=== PATIENT | female | born 1975 | race Caucasian/White ===

== ENCOUNTER 2023-05-10 18:46 | Emergency (ER) | payer OTHER, BC ==
[~2023-05-10] VITALS: Ht 177.8 cm; Wt 115.2 kg
[2023-05-10 18:48] VITALS: BP 159/115
[2023-05-10] MEDS ORDERED: ONDA4ODT (20:08)
[2023-05-10] MEDS ORDERED: SUMA25 PO (20:08)
[2023-05-10] MEDS ORDERED: ANTIFUNGAL30 GM TOP (20:09)
[2023-05-10] MEDS ORDERED: FAMO40 (20:09)
[2023-05-10] MEDS ORDERED: GABA400 PO (20:10)
[2023-05-10] MEDS ORDERED: VOLTAREN ARTHRI20 GM TOP (20:12)
== END 2023-05-10 21:39 | disposition home or self-care (01) ==
LOC: ER 18:46
DX: R07.89 Other chest pain (principal); F43.10 Post-traumatic stress disorder, unspecified; F17.210 Nicotine dependence, cigarettes, uncomplicated
CPT/HCPCS: 93005; 93010; 96372-59; 96374; 99283-25; J1650; J1885